=== PATIENT | male | born 1990 | race Caucasian/White ===

== ENCOUNTER 2018-08-05 07:50 | Emergency (ER) | payer MEDICAID ==
--- NOTE | 2018-08-05 08:44 | ED Physician Chart ---
ED Chief Complaint/HPI - Patient Information Date Seen:: 08/05/18 Time Seen:: 08:20 Chief Complaint:: rectal pain History of Present Illness:: He has had constant (not just with bowel movements) rectal pain for last 3 days. No rectal bleeding. He has been having about one normal bowel movement per day. Patient had Crohn's disease diagnosed at age 13 and had a colonoscopy at that time but has not had a colonoscopy since then. Allergies:: Allergies Allergy/AdvReac Type Severity Reaction Status Date / Time No Known Allergies Allergy Verified 08/05/18 08:20 Vitals:: Vital Signs - 8 hr 08/05/18 08:08 Temp 98.7 F HR 75 RR 18 O2 Sat % 99 Historian:: Patient Review:: Nurse's Note Reviewed ED Review of Systems - Review of Systems General/Constitutional: No fever, No chills Skin: No skin lesions Head: No headache Eyes: No loss of vision ENT: No earache Neck: No neck pain Cardio Vascular: No chest pain, No palpitations Pulmonary: No SOB GI: No nausea, No vomiting, No diarrhea, Other (rectal pain) G/U: No dysuria Musculoskeletal: No bone or joint pain Endocrine: No polyuria, No polydipsia Psychiatric: No prior psych history Hematopoietic: No bruising Allergic/Immuno: No urticaria Neurological: No syncope, No focal symptoms ED Past Medical History - Past Medical History Past Medical History: Other (Crohn's disease) Family History: Heart disease, HTN Social History: Other (drinks about 48 ounces of beer a day and smokes marijuana but not cigarettes) Surgical History: None Psychiatricy History: None Medication: None Family Medical History - Family Member Mother History Unknown: Yes ED Physical Exam - Physical Examination General/Constitutional: Well-developed, well-nourished, Alert, No distress Head: Atraumatic Eyes: Lids, conjuctiva normal, PERRL Skin: Nl inspection, No rash ENMT: External ears, nose nl, TM canals nl, Nasal exam nl, Lips, teeth, gums nl Neck: No nuchal rigidity Respiratory: Nl effort/Exclusion, Clear to Auscultation, No Wheeze/Rhonchi/Rales Cardio Vascular: RRR, No murmur, gallop, rubs GI: No tenderness/rebounding/guarding, No organomegaly, No hernia, Normal BS's, Nondistended, No mass/bruits, No McBurney tenderness, Rectum exam nl Other GI comments:: Rectal exam: No mass or fissure; brown stool on examining glove Extremities: Normal digits & nails Neuro/Psych: Judgement/insight normal, No focal deficits Misc: Normal back ED Assessment - Assessment General Assessment: Patient probably needs another colonoscopy and was referred to Dr. Medellin the food and nutrition professor. Patient declined a pain injection which would have. been 2 mg of Dilaudid intramuscularly. A SHEENT prescribed Anusol HC suppositories # 12 in case he has internal hemorrhoids. ED Septic Shock - . Is Septic Shock (SBP<90, OR Lactate>4 mmol\L) present?: No - <6hrs of presentation: Vital Signs: Vital Signs - 8 hr 08/05/18 08:08 Temp 98.7 F HR 75 RR 18 O2 Sat % 99 ED Reassessment (Disposition) - Reassessment Reassessment Condition:: Unchanged - Diagnosis Diagnosis:: Rectal pain; possible internal hemorrhoids - Aftercare/Follow up Instructions Aftercare/Follow-Up Instructions:: Refer to Discharge Instructions Medication Prescribed:: Anusol HC suppositories #12 to use per directions - Patient Disposition Discharge/Transfer:: Home Condition at Disposition:: Stable, Unchanged
== END 2018-08-05 08:55 | disposition home or self-care (01) ==
LOC: ER 07:50
DX: K62.89 Other specified diseases of anus and rectum (principal); Z88.0 Allergy status to penicillin
CPT/HCPCS: Z7502

== ENCOUNTER 2018-08-06 12:31 | Emergency (ER) | payer MEDICAID ==
--- NOTE | 2018-08-06 13:01 | ED Physician Chart ---
ED Chief Complaint/HPI - Patient Information Date Seen:: 08/06/18 Time Seen:: 12:42 Chief Complaint:: refused exam History of Present Illness:: refused exam. just wanted to review suppositories for hemorrhoids with me. Allergies:: Allergies Allergy/AdvReac Type Severity Reaction Status Date / Time amoxicillin Allergy Unknown Verified 08/06/18 12:42 Vitals:: Vital Signs - 8 hr 08/06/18 12:42 Temp 98.3 F HR 63 RR 18 BP 129/82 O2 Sat % 99 ED Review of Systems - Review of Systems General/Constitutional: No fever, No chills, No weight loss, No weakness, No diaphoresis, No edema, No loss of appetite Skin: No skin lesions, No rash, No bruising Head: No headache, No light-headedness Eyes: No loss of vision, No pain, No diplopia ENT: No earache, No nasal drainage, No sore throat, No tinnitus Neck: No neck pain, No swelling, No thyromegaly, No stiffness, No mass noted Cardio Vascular: No chest pain, No palpitations, No PND, No orthopnea, No edema Pulmonary: No SOB, No cough, No sputum, No wheezing GI: Other (HEMORRHOID PAIN) G/U: No dysuria, No frequency, No hematuria Musculoskeletal: No bone or joint pain, No back pain, No muscle pain Endocrine: No polyuria, No polydipsia Psychiatric: No prior psych history, No depression, No anxiety, No suicidal ideation Hematopoietic: No bruising, No lymphadenopathy Allergic/Immuno: No urticaria, No angioedema Neurological: No syncope, No focal symptoms, No weakness, No paresthesia, No headache, No seizure, No dizziness, No confusion, No vertigo Family Medical History - Family Member Mother History Unknown: Yes ED Physical Exam - Physical Examination General/Constitutional: Awake, Well-developed, well-nourished, Alert, No distress Other Gen/Cons comments:: refused exam. just wanted to review suppositories for hemorrhoids with me. ED Septic Shock - . Is Septic Shock (SBP<90, OR Lactate>4 mmol\L) present?: No - <6hrs of presentation: Vital Signs: Vital Signs - 8 hr 08/06/18 12:42 Temp 98.3 F HR 63 RR 18 BP 129/82 O2 Sat % 99 ED Reassessment (Disposition) - Reassessment Reassessment Condition:: Unchanged - Aftercare/Follow up Instructions Aftercare/Follow-Up Instructions:: Refer to Discharge Instructions Notes:: per previous instructions. - Patient Disposition Condition at Disposition:: Stable, Unchanged
== END 2018-08-06 13:05 | disposition home or self-care (01) ==
LOC: ER 12:31
DX: K64.9 Unspecified hemorrhoids (principal); Z88.0 Allergy status to penicillin